=== PATIENT | male | born 1955 | race Caucasian/White ===

== ENCOUNTER 2019-08-09 16:45 | Emergency (ER) | payer OTHER ==
--- NOTE | 2019-08-09 18:21 | RAD REPORT ---
EXAM DESCRIPTION: USExtremkathryn Venous Uni Ltd08/09/2019 6:05 pm CLINICAL HISTORY: left leg pain and swelling. COMPARISON: None. FINDINGS: Left common femoral, superficial femoral, popliteal and posterior tibial veins are compre ssible and demonstrate augmentation. Doppler demonstrates good flow. IMPRESSION: No evidence of deep venous thrombosis involving the left lower extremity.
--- NOTE | 2019-08-09 18:56 | ER ---
Nurse's Notes [facility] Name: Dajuan Galicia Age: 63 yrs Sex: Male : 1955 Arrival Date: 08/09/2019 Time: 16:47 Bed 6 Private MD: Diagnosis: Pain in left leg Presentation: 08/09 17:01 Presenting complaint: Patient states: Dr. Patel sent to r/o DVT, reports Dr. Patel says jl7 his symptoms are classic for blood clot, reports "When I stand up my left leg gets real tight behind the knee, doesn't want to work and is a little swollen.". Transition of care: patient was not received from another setting of care. Onset of symptoms was August 05, 2019. Risk Assessment: Do you want to hurt yourself or someone else? Patient reports no desire to harm self or others. Initial Sepsis Screen: Does the patient meet any 2 criteria? No. Patient's initial sepsis screen is negative. Does the patient have a suspected source of infection? No. Patient's initial sepsis screen is negative. Care prior to arrival: None. 17:01 Method Of Arrival: Wheelchair [facility] [place] 17:01 Acuity: JASON 3 jl7 Triage Assessment: 17:05 General: Appears in no apparent distress. comfortable, Behavior is cooperative, bp appropriate for age, anxious. Pain: Complains of pain in left leg. EENT: No deficits noted. Neuro: No deficits noted. Cardiovascular: No deficits noted. Respiratory: No deficits noted. GI: No signs and/or symptoms were reported involving the gastrointestinal system. : No signs and/or symptoms were reported regarding the genitourinary system. Derm: No deficits noted. Musculoskeletal: Swelling present in left leg. Historical: - Allergies: 17:05 terbinafine HCl; jl7 - Home Meds: 17:05 irbesartan oral oral [Active]; amlodipine oral [Active]; [place] Thyroid Oral [Active]; jl7 - PMHx: 17:05 Hypertension; Hypothyroidism; jl7 - Immunization history:: Adult Immunizations not up to date. - Social history:: Smoking status: Patient uses tobacco products, denies chronic smoking, but will smoke occasionally. - Ebola Screening: : No symptoms or risks identified at this time. Screenin:05 Abuse screen: Denies threats or abuse. Denies injuries from another. Nutritional bp screening: No deficits noted. Tuberculosis screening: No symptoms or risk factors identified. Fall Risk None identified. Assessment: 17:05 General: SEE TRIAGE NOTE. bp 18:26 Reassessment: U/S COMPLETED, RESULTS PENDING. bp 19:04 Reassessment: Patient appears in no apparent distress at this time. Patient is alert, rr5 oriented x 3, equal unlabored respirations, skin warm/dry/pink. discharge instruction given and explained without complaints made, verbalized understading. Vital Signs: 17:05 BP 130 / 76; Pulse 75; Resp 16 S; Temp 98.3(O); Pulse Ox 95% on R/A; Weight 127.01 kg jl7 (R); Height 6 ft. 1 in. (185.42 cm) (R); Pain 5/10; 18:30 BP 140 / 86; Pulse 76; Resp 16; Pulse Ox 96% ; bp 19:04 Temp 98.3; rr5 17:05 Body Mass Index 36.94 (127.01 kg, 185.42 cm) jl7 19:04 patient refused for the rest of vital signs to be taken. rr5 ED Course: 16:47 Patient arrived in ED. as 17:04 Triage completed. jl7 17:05 Becky Dolan FNP-C is [facility]. kb 17:05 Joseph Krueger MD is Attending Physician. kb 17:05 Arm band placed on right wrist. jl7 17:05 Patient has correct armband on for positive identification. Bed in low position. Call bp light in reach. Side rails up X2. 17:08 Jasen Reyes, RN is Primary Nurse. bp 18:07 US Extremity Venous Unilateral Ltd In Process Unspecified. EDMS 19:05 No provider procedures requiring assistance completed. Patient did not have IV access rr5 during this emergency room visit. Administered Medications: No medications were administered Outcome: 18:56 Discharge ordered by . kb 19:05 Discharged to home ambulatory. rr5 19:05 Condition: stable 19:05 Discharge instructions given to patient, Instructed on discharge instructions, follow up and referral plans. medication usage, Demonstrated understanding of instructions, follow-up care, medications, Prescriptions given X 1. 19:18 Patient left the ED. rr5 Signatures: Dispatcher [employer] EDMA Becky Dolan FNP-C ARTIFICIAL BREEDING DISTRIBUTOR-CkRoxi Varela Jahala, RN RN jl7 Jasen Reyes, RN RN bp Shivam Clark, RN RN rr5
--- NOTE | 2019-08-09 18:57 | EDPHYS ---
Physician Documentation [facility] Name: Dajuan Galicia Age: 63 yrs Sex: Male : 1955 Arrival Date: 08/09/2019 Time: 16:47 Bed 6 Private MD: ED Physician Joseph Krueger HPI: 08/09 18:08 This 63 yrs old Male presents to ER via Wheelchair with complaints of Leg kb Pain. 18:08 The patient presents with pain, that is acute, tightness. The complaints affect the kb left calf and posterior aspect of left knee. Context: The problem was sustained at home, resulted from an unknown cause, the patient can fully bear weight, the patient is able to ambulate. Onset: The symptoms/episode began/occurred yesterday. Modifying factors: The symptoms are alleviated by nothing. the symptoms are aggravated by nothing. Associated signs and symptoms: The patient has no apparent associated signs or symptoms. Treatment prior to arrival includes: no previous treatment. Severity of symptoms: At their worst the symptoms were moderate, in the emergency department the symptoms are unchanged. The patient has not experienced similar symptoms in the past. The patient has not recently seen a physician. Pt reports he was sitting at his desk for a while and when he got up he had pain/tightness to calf and behind knee. Went to PCP today and was told to come get an US. Historical: - Allergies: 17:05 terbinafine HCl; jl7 - Home Meds: 17:05 irbesartan oral oral [Active]; amlodipine oral [Active]; [place] Thyroid Oral [Active]; jl7 - PMHx: 17:05 Hypertension; Hypothyroidism; jl7 - Immunization history:: Adult Immunizations not up to date. - Social history:: Smoking status: Patient uses tobacco products, denies chronic smoking, but will smoke occasionally. - Ebola Screening: : No symptoms or risks identified at this time. ROS: 18:07 Constitutional: Negative for fever, chills, and weight loss, Neck: Negative for injury, kb pain, and swelling, Cardiovascular: Negative for chest pain, palpitations, and edema, Respiratory: Negative for shortness of breath, cough, wheezing, and pleuritic chest pain, Abdomen/GI: Negative for abdominal pain, nausea, vomiting, diarrhea, and constipation, Back: Negative for injury and pain, Skin: Negative for injury, rash, and discoloration, Neuro: Negative for headache, weakness, numbness, tingling, and seizure. 18:07 MS/extremity: Positive for pain, of the posterior aspect of left knee and left calf, tightness. Exam: 18:07 Constitutional: This is a well developed, well nourished patient who is awake, alert, kb and in no acute distress. Head/Face: Normocephalic, atraumatic. ENT: Nares patent. No nasal discharge, no septal abnormalities noted. Tympanic membranes are normal and external auditory canals are clear. Oropharynx with no redness, swelling, or masses, exudates, or evidence of obstruction, uvula midline. Mucous membranes moist. Neck: Trachea midline, no thyromegaly or masses palpated, and no cervical lymphadenopathy. Supple, full range of motion without nuchal rigidity, or vertebral point tenderness. No Meningismus. Chest/axilla: Normal chest wall appearance and motion. Nontender with no deformity. No lesions are appreciated. Cardiovascular: Regular rate and rhythm with a normal S1 and S2. No gallops, murmurs, or rubs. Normal PMI, no JVD. No pulse deficits. Respiratory: Lungs have equal breath sounds bilaterally, clear to auscultation and percussion. No rales, rhonchi or wheezes noted. No increased work of breathing, no retractions or nasal flaring. Abdomen/GI: Soft, non-tender, with normal bowel sounds. No distension or tympany. No guarding or rebound. No evidence of tenderness throughout. Skin: Warm, dry with normal turgor. Normal color with no rashes, no lesions, and no evidence of cellulitis. MS/ Extremity: Pulses equal, no cyanosis. Neurovascular intact. Full, normal range of motion. Neuro: Awake and alert, GCS 15, oriented to person, place, time, and situation. Cranial nerves II-XII grossly intact. Motor strength 5/5 in all extremities. Sensory grossly intact. Cerebellar exam normal. Normal gait. Vital Signs: 17:05 BP 130 / 76; Pulse 75; Resp 16 S; Temp 98.3(O); Pulse Ox 95% on R/A; Weight 127.01 kg jl7 (R); Height 6 ft. 1 in. (185.42 cm) (R); Pain 5/10; 18:30 BP 140 / 86; Pulse 76; Resp 16; Pulse Ox 96% ; bp 19:04 Temp 98.3; rr5 17:05 Body Mass Index 36.94 (127.01 kg, 185.42 cm) jl7 19:04 patient refused for the rest of vital signs to be taken. rr5 MDM: 17:08 Patient medically screened. kb 18:05 Data reviewed: vital signs, nurses notes. Data interpreted: Pulse oximetry: on room air kb is 95 %. Interpretation: normal. 18:12 ED course: No tenderness, warmth or swelling noted upon exam. kb 18:55 Counseling: I had a detailed discussion with the patient and/or guardian regarding: the kb historical points, exam findings, and any diagnostic results supporting the discharge/admit diagnosis, radiology results, the need for outpatient follow up, a family practitioner, to return to the emergency department if symptoms worsen or persist or if there are any questions or concerns that arise at home. 08/09 17:06 Order name: US Extremity Venous Unilateral Ltd; Complete Time: 18:45 kb Administered Medications: No medications were administered Disposition: 08/09/19 18:56 Discharged to Home. Impression: Pain in left leg. - Condition is Stable. - Discharge Instructions: Musculoskeletal Pain. - Prescriptions for Cyclobenzaprine 10 mg Oral Tablet - take 1 tablet by ORAL route every 8 hours As needed; 21 tablet. - Medication Reconciliation Form, Thank You Letter, Antibiotic Education, Prescription Opioid Use form. - Follow up: Emergency Department; When: As needed; Reason: Worsening of condition. Follow up: Private Physician; When: 2 - 3 days; Reason: Recheck today's complaints, Continuance of care, Re-evaluation by your physician. Addendum: 08/13/2019 07:25 Co-signature as Attending Physician, Joseph Krueger MD. r n Signatures: Dispatcher [employer] EDMS Becky Dolan, COMMISSIONING SPECIALIST-C COMMISSIONING SPECIALIST-CkJoseph Agarwal MD MD rn Leal, Jahala, RN RN jl7 Shivam Clark RN RN rr5 Corrections: (The following items were deleted from the chart) 08/09 19:18 18:56 08/09/2019 18:56 Discharged to Home. Impression: Pain in left leg. Condition is rr5 Stable. Forms are Medication Reconciliation Form, Thank You Letter, Antibiotic Education, Prescription Opioid Use. Follow up: Emergency Department; When: As needed; Reason: Worsening of condition. Follow up: Private Physician; When: 2 - 3 days; Reason: Recheck today's complaints, Continuance of care, Re-evaluation by your physician. kb
[2019-08-09 21:49] VITALS: TEMP 98.3
[2019-08-09 21:50] VITALS: BP 140/86; O2SAT 96
== END 2019-08-09 19:18 | disposition home or self-care (01) ==
LOC: ER 16:45
DX: M79.662 Pain in left lower leg (principal); I10 Essential (primary) hypertension; E03.9 Hypothyroidism, unspecified; Z72.0 Tobacco use; Z88.8 Allergy status to other drugs, medicaments and biological substances
CPT/HCPCS: 93971; 99283

== ENCOUNTER 2023-12-01 15:24 | Inpatient (IN) | payer OTHER ==
[2023-12-01] MEDS ORDERED: VANCOMYCIN 1 GM/VIAL ONE (16:27)
[2023-12-01] MEDS ORDERED: NA CHLORIDE 0.9% 1,000 ML ONE (16:28)
[2023-12-01] MEDS ORDERED: NA CHLORIDE 0.9% 250 ML ONE (16:28)
[2023-12-01 16:33] LABS: PT Prothrombin Time 12.7 SECONDS (9.5-12.5); PTT, Activated Partial Thromb 30.6 SECONDS (24.3-36.9); Protime INR 1.16
[2023-12-01 16:34] LABS: Absolute Eosinophils 0.1 K/uL (0-0.5); Absolute Lymphocytes (CBC) 0.9 K/uL (0.7-4.9); Absolute Monocytes 1.6 K/uL (0.1-1.3); Basophils % 0.4 % (0-1.3); Eosinophils % 1.2 % (0-4.4); Hematocrit 40.1 % (39.6-49.0); Hemoglobin 13.7 g/dL (13.6-17.9); Lymphocytes % 7.8 % (15.3-44.8); MCHC 34.1 g/dL (32.0-36.0); MCV 93.7 fL (80-100); MPV 8.4 fL (7.6-11.3); Monocytes % 13.8 % (3.3-12.3); Neutrophils % 76.8 % (41.7-73.7); Platelets 212 thou/uL (152-406); RBC Red Blood Cell Count 4.28 M/uL (4.33-5.43); Red Cell Distribution Width 13.9 % (12.1-15.2)
[2023-12-01 16:48] LABS: Albumin 3.5 g/dL (3.4-5.0); Albumin/Globulin Ratio 0.8 (1.1-1.8); Anion Gap 9.9 mEq/L (5.0-15.0); Bilirubin Total 0.6 mg/dL (0.2-1.0); Globulin 4.2 g/dL (2.3-3.5); Potassium 3.9 mEq/L (3.5-5.1); Protein, Total 7.7 g/dL (6.4-8.2)
--- NOTE | 2023-12-01 17:29 | RAD REPORT ---
EXAM DESCRIPTION: [place] Single View12/01/2023 4:37 pm CLINICAL HISTORY: wound to back COMPARISON: Chest Pa And Lat (2 Views) dated 07/31/2019; Chest Pa And Lat (2 Views) dated 02/06/2018 TECHNIQUE: Portable AP view of the chest. FINDINGS: The lungs are clear. No pneumothorax or effusion. The cardiomediastinal contours are unre markable. IMPRESSION: No acute cardiopulmonary process.
--- NOTE | 2023-12-01 18:06 | EDPHYS ---
Physician Documentation [facility] Name: Dajuan Galicia Age: 68 yrs Sex: Male : 1955 Arrival Date: 12/01/2023 Time: 15:24 Bed 3 Private MD: Ramon Lugo ED Physician Alfonso Madrigal HPI: 11/30 17:40 This 68 yrs old Male presents to ER via Ambulatory with complaints of Sent by Shabbir. rt 17:40 Patient presents to the ED with a wound to his lower back for several days. He was at rt his office today for drainage, was found to be tachycardic, somewhat hypertensive, diaphoretic, sent to the ED for admission, further care. Dr. Shea recommended n.p.o. after midnight, IV antibiotics.. Historical: - Allergies: 15:38 terbinafine HCl; ko1 - PMHx: 15:38 Hypertension; Hypothyroidism; ko1 - PSHx: 15:38 None; ko1 - Immunization history:: Adult Immunizations up to date. - Social history:: Smoking status: Patient denies any tobacco usage or history of. - Family history:: not pertinent. ROS: 17:40 Constitutional: Negative for fever, chills, and weight loss, Cardiovascular: Negative rt for chest pain, palpitations, and edema, Respiratory: Negative for shortness of breath, cough, wheezing, and pleuritic chest pain, Abdomen/GI: Negative for abdominal pain, nausea, vomiting, diarrhea, and constipation, MS/Extremity: Negative for injury and deformity, Neuro: Negative for headache, weakness, numbness, tingling, and seizure, Psych: Negative for depression, anxiety, suicide ideation, homicidal ideation, and hallucinations, 17:40 Skin: Positive for cellulitis, erythema, Exam: 17:40 Constitutional: This is a well developed, well nourished patient who is awake, alert, rt and in no acute distress. Head/Face: Normocephalic, atraumatic. Chest/axilla: Normal chest wall appearance and motion. Nontender with no deformity. No lesions are appreciated. Cardiovascular: Regular rate and rhythm with a normal S1 and S2. No gallops, murmurs, or rubs. Normal PMI, no JVD. No pulse deficits. Respiratory: Lungs have equal breath sounds bilaterally, clear to auscultation and percussion. No rales, rhonchi or wheezes noted. No increased work of breathing, no retractions or nasal flaring. Abdomen/GI: Soft, non-tender, with normal bowel sounds. No distension or tympany. No guarding or rebound. No evidence of tenderness throughout. MS/ Extremity: Pulses equal, no cyanosis. Neurovascular intact. Full, normal range of motion. Neuro: Awake and alert, GCS 15, oriented to person, place, time, and situation. Cranial nerves II-XII grossly intact. Motor strength 5/5 in all extremities. Sensory grossly intact. Cerebellar exam normal. Normal gait. 17:40 Skin: 2 cm area of erythema, induration to the lower back, no obvious purulence. 17:43 ECG was reviewed by the Attending Physician. rt Vital Signs: 15:34 BP 92 / 64; Pulse 85; Resp 16; Temp 97.8; Pulse Ox 98% ; ko1 16:30 BP 102 / 66; Pulse 70; Resp 18; Pulse Ox 100% ; cp4 17:30 BP 122 / 77; Pulse 73; Resp 18; Pulse Ox 100% ; cp4 18:30 BP 126 / 64; Pulse 84; Resp 18; Pulse Ox 98% ; cp4 MDM: 15:46 Patient medically screened. rt 18:07 Differential Diagnosis Cellulitis, abscess, sepsis. Data reviewed: vital signs, nurses rt notes, lab test result(s), radiologic studies. Consideration of Admission/Observation Patient was admitted/placed on observation. Management of patient was discussed with the following: Transitional Kindergarten Teacher: Discussed with Dr. Shea, once patient n.p.o. after midnight, will operate in the morning.. Independent interpretation of the following test(s) in the Emergency Department CT Scan: My interpretation is No bowel obstruction seen on my interpretation of CT scan images. Care significantly affected by the following chronic conditions: Hypertension. Counseling: I had a detailed discussion with the patient and/or guardian regarding the historical points, exam findings, and any diagnostic results supporting the discharge/admit diagnosis, lab results, radiology results, the need for further work-up and treatment in the hospital. 11/30 15:54 Order name: Blood Culture Adult (2) rt 11/30 15:54 Order name: CBC with Diff; Complete Time: 17:04 rt 11/30 15:54 Order name: CMP; Complete Time: 17:04 rt 11/30 15:54 Order name: Lactate w/ 2H reflex if indic.; Complete Time: 17:04 rt 11/30 15:54 Order name: Protime (+inr); Complete Time: 17:04 rt 11/30 15:54 Order name: Ptt, Activated; Complete Time: 17:04 rt 11/30 15:54 Order name: Urinalysis w/ reflexes rt 11/30 18:34 Order name: Basic Metabolic Panel EDMS 11/30 18:34 Order name: Basic Metabolic Panel EDMS 11/30 18:34 Order name: CBC with Automated Diff EDMS 11/30 18:34 Order name: CBC with Automated Diff EDMS 11/30 15:54 Order name: Chest Single View XRAY; Complete Time: 18:08 rt 11/30 17:25 Order name: Abdomen ; Complete Time: 18:35 EDMS 11/30 15:54 Order name: EKG; Complete Time: 15:55 rt 11/30 18:34 Order name: CONS Physician Consult EDMS 11/30 15:54 Order name: Accucheck; Complete Time: 16:22 rt 11/30 15:54 Order name: Cardiac monitoring; Complete Time: 16:21 rt 11/30 15:54 Order name: EKG - Nurse/Tech; Complete Time: 16:48 rt 11/30 15:54 Order name: IV Saline Lock - Large Bore; Complete Time: 16:21 rt 11/30 15:54 Order name: Labs collected and sent; Complete Time: 16:21 rt 11/30 15:54 Order name: O2 Per Protocol; Complete Time: 16:21 rt 11/30 15:54 Order name: O2 Sat Monitoring; Complete Time: 16:21 rt 11/30 15:54 Order name: Vital Signs; Complete Time: 16:21 rt EC:43 Rate is 72 beats/min. Rhythm is regular, Normal Sinus Rhythm with No ectopy. Left axis rt deviation noted. IA interval is normal. QRS interval is normal. QT interval is normal. No Q waves. Administered Medications: 16:37 Drug: vancoMYCIN IVPB 1 grams IVPB once over 2 hrs Route: IVPB; Infused Over: 2 hrs; cp4 Site: left antecubital; 18:38 Follow up: Response: No adverse reaction; IV Status: Completed infusion cp4 16:37 Drug: NS 0.9% IV 1000 ml IV at 1 bolus Per protocol; 1000 mL bolus Route: IV; Rate: 1 cp4 bolus; Site: left antecubital; 18:09 Follow up: Response: No adverse reaction; IV Status: Completed infusion cp4 Disposition Summary: 12/01/23 18:05 Hospitalization Ordered Notes: Hospitalization Status: Inpatient Admission rt Provider: Javy Clark rt Location: Telemetry/[facility] (Inpatient) rt Condition: Stable rt Problem: new rt Symptoms: have improved rt Bed/Room Type: Standard rt Room Assignment: 404(12/01/23 18:46) em1 Diagnosis - Cellulitis to lower back rt Forms: - Medication Reconciliation Form rt - SBAR form rt - Leadership Thank You Letter rt Signatures: Dispatcher [employer] Raul Walter em1 Natalia Dumas, RN RN ko1 Alfonso Madrigal MD MD rt Linda Flores cp4 Corrections: (The following items were deleted from the chart) 17:25 17:20 Abdomen Pelvis W Con+CT.RAD.BRZ ordered. EDND EDMS 18:46 18:05 rt em1
--- NOTE | 2023-12-01 18:06 | ER ---
Nurse's Notes [facility] Name: Dajuan Galicia Age: 68 yrs Sex: Male : 1955 Arrival Date: 12/01/2023 Time: 15:24 Bed 3 Private MD: Ramon Lugo Diagnosis: Cellulitis to lower back Presentation: 11/30 15:34 Chief complaint: Patient states: Dr Shea sent him over for surgery for "something on ko1 my lower back", its been there about 2 weeks. Coronavirus screen: At this time, the client does not indicate any symptoms associated with coronavirus-19. Ebola Screen: No symptoms or risks identified at this time. Initial Sepsis Screen: Does the patient meet any 2 criteria? No. Patient's initial sepsis screen is negative. Does the patient have a suspected source of infection? No. Patient's initial sepsis screen is negative. Risk Assessment: Do you want to hurt yourself or someone else? Patient reports no desire to harm self or others. Onset of symptoms is unknown. 15:34 Method Of Arrival: Ambulatory ko1 15:34 Acuity: JASON 3 ko1 Triage Assessment: 15:38 General: Appears in no apparent distress. Behavior is calm, cooperative, appropriate ko1 for age. Pain: Complains of pain in back. Historical: - Allergies: 15:38 terbinafine HCl; ko1 - PMHx: 15:38 Hypertension; Hypothyroidism; ko1 - PSHx: 15:38 None; ko1 - Immunization history:: Adult Immunizations up to date. - Social history:: Smoking status: Patient denies any tobacco usage or history of. - Family history:: not pertinent. Screenin:22 [facility] ED Fall Risk Assessment (Adult) History of falling in the last 3 months, cp4 including since admission No falls in past 3 months (0 pts) Confusion or Disorientation No (0 pts) Intoxicated or Sedated No (0 pts) Impaired Gait No (0 pts) Mobility Assist Device Used No (0 pt) Altered Elimination No (0 pt) Score/Fall Risk Level 0 - 2 = Low Risk Oriented to surroundings, Maintained a safe environment, Assessed \\T\\ reinforced patient's understanding of fall precautions, Hourly rounding (assess needs \\T\\ fall precautionary measures) done. Abuse screen: Denies threats or abuse. Nutritional screening: No deficits noted. Tuberculosis screening: No symptoms or risk factors identified. Assessment: 16:22 General: Appears uncomfortable, Behavior is calm, cooperative, appropriate for age. cp4 Pain: Complains of pain in low back area Pain currently is 10 out of 10 on a pain scale. Derm: Abscess located on low back area has no drainage, is red, is raised. Vital Signs: 15:34 BP 92 / 64; Pulse 85; Resp 16; Temp 97.8; Pulse Ox 98% ; ko1 16:30 BP 102 / 66; Pulse 70; Resp 18; Pulse Ox 100% ; cp4 17:30 BP 122 / 77; Pulse 73; Resp 18; Pulse Ox 100% ; cp4 18:30 BP 126 / 64; Pulse 84; Resp 18; Pulse Ox 98% ; cp4 ED Course: 15:25 Patient arrived in ED. rg4 15:25 Alfonso Madrigal MD is Attending Physician. rt 15:26 Ramon Lugo DO is Private Physician. rg4 15:38 Triage completed. ko1 15:38 Arm band placed on right wrist. Patient placed in an exam room, on a stretcher, on ko1 decorating consultant, on pulse oximetry, Patient notified of wait time. 15:55 Linda Flores is Primary Nurse. cp4 16:15 Initial lab(s) drawn, by me, sent to lab. First set of blood cultures drawn by me, cp4 Second set of blood cultures drawn by me, EKG done, by ED staff, reviewed by Alfonso Madrigal MD. 16:21 Blood Culture Adult (2) Sent. cp4 16:21 CBC with Diff Sent. cp4 16:21 CMP Sent. cp4 16:21 Lactate w/ 2H reflex if indic. Sent. cp4 16:21 Protime (+inr) Sent. cp4 16:21 Ptt, Activated Sent. cp4 16:21 Urinalysis w/ reflexes Sent. cp4 16:22 Placed in gown. Bed in low position. Call light in reach. Side rails up X 1. Provided cp4 Education on: abscess. 16:22 No provider procedures requiring assistance completed. cp4 16:22 Inserted saline lock: 20 gauge in left antecubital area, using aseptic technique. Blood cp4 collected. 16:38 Chest Single View XRAY In Process Unspecified. EDMS 17:41 Abdomen In Process Unspecified. EDMS 18:05 Javy Clark MD is Hospitalizing Provider. rt 19:41 Patient admitted, IV remains in place. rv Administered Medications: 16:37 Drug: vancoMYCIN IVPB 1 grams IVPB once over 2 hrs Route: IVPB; Infused Over: 2 hrs; cp4 Site: left antecubital; 18:38 Follow up: Response: No adverse reaction; IV Status: Completed infusion cp4 16:37 Drug: NS 0.9% IV 1000 ml IV at 1 bolus Per protocol; 1000 mL bolus Route: IV; Rate: 1 cp4 bolus; Site: left antecubital; 18:09 Follow up: Response: No adverse reaction; IV Status: Completed infusion cp4 Medication: 16:22 VIS not applicable for this client. cp4 Outcome: 18:05 Decision to Hospitalize by Provider. rt 19:40 Admitted to Tele accompanied by nurse, via wheelchair, room 404, Report called to rv admission papers faxed and received by Shonna BILLINGS 19:40 Condition: good 19:40 Instructed on the need for admit, 19:41 Patient left the ED. rv Signatures: Dispatcher [employer] Lashanda Huffman rg4 Rafi Holcomb RN RN rv Natalia Dumas RN RN ko1 Alfonso Madrigal MD MD rt Linda Flores cp4 Corrections: (The following items were deleted from the chart) 15:39 15:34 Chief complaint: Patient states: Dr Shea sent him over for surgery for ko1 "something on my lower back" ko1
--- NOTE | 2023-12-01 18:24 | P.HP ---
Certification for Inpatient Patient admitted to: Inpatient With expected LOS: >2 Midnights Patient will require the following post-hospital care: None Practitioner: I am a practitioner with admitting privileges, knowledge of patient current condition, hospital course, and medical plan of care. Services: Services provided to patient in accordance with Admission requirements found in Title 42 Section 412.3 of the Code of Federal Regulations Patient History Date of Service: 12/01/23 Reason for admission: Cellulitis of the lower back History of Present Illness: Patient is a 68-year-old gentleman came to the hospital with pain on the lower back. Patient stated that he had been cutting his yard a week ago and he had been sweating quite a bit. When he came inside he noticed that he was not feeling like himself. He was feeling nauseated and dizzy. He also noticed that he has some erythema on the lower back. He was feeling really bad all weekend as he was not really getting out of bed and doing much of anything. Whenever he would get up he would feel dizzy so he was hesitant to do anything strenuous. The area on his back started getting hard, and he made an appointment on Tuesday for a tele-doc visit with Sarah Lara. The tele-doc called in an antibiotic for him. He also called in an ointment for his lower back. Patient states that he was not really feeling any better. He decided to go into the doctor yesterday and they set up an appointment for him to go see a surgeon. He ended up going to see Dr. Shea. He was sent into the emergency room for further evaluation. In the ER, patient has had lab workup and CT scan which are pending. Patient is feeling dehydrated as he has some dysuria. Patient will be admitted to the hospital for inpatient hospitalization. Allergies terbinafine HCl [From Lamisil] Allergy (Verified 01/30/16 09:20) Rash Home Medications: Amlodipine [Norvasc*] 10 mg PO DAILY 06/14/14 Irbesartan/Hydrochlorothiazide [Avalide 300-12.5 mg Tablet] 1 each PO DAILY WITH BREAKFAST 06/14/14 Thyroid Tab [[place] Thyroid] 30 mg PO DAILY 06/14/14 - Past Medical/Surgical History -: Hypertension -: Hypothyroidism Past Surgical History: Patient denies surgical history - Family History Father Family History: Reviewed- Non-Contributory - Social History Smoking Status: Former smoker Alcohol use: Yes CD- Drugs: Yes Review of Systems 10-point ROS is otherwise unremarkable Physical Examination - Vital Signs Temperature: 99 F Blood Pressure: 140/80 Pulse: 90 Respirations: 18 Pulse Ox (%): 96 - Physical Exam General: Alert, In no apparent distress, Oriented x3 HEENT: Atraumatic, PERRLA, Mucous membr. moist/pink, EOMI, Sclerae nonicteric Neck: Supple, 2+ carotid pulse no bruit, No LAD, Without JVD or thyroid abnormality Respiratory: Clear to auscultation bilaterally, Normal air movement Cardiovascular: Regular rate/rhythm, Normal S1 S2 Gastrointestinal: Normal bowel sounds, Soft and benign, Non-distended, No tenderness Musculoskeletal: No clubbing, No swelling, No tenderness Integumentary: Tenderness/swelling, Erythema, Warmth Neurological: Normal gait, Normal speech, Normal strength at 5/5 x4 extr, Normal tone, Sensation intact, Cranial nerves 3-12 intact, Normal affect Lymphatics: No axilla or inguinal lymphadenopathy - Studies Laboratory Data (last 24 hrs) 12/01/23 12/01/23 12/01/23 16:15 16:15 16:15 WBC 11.70 H Hgb 13.7 Hct 40.1 Plt Count 212 PT 12.7 H INR 1.16 APTT 30.6 Sodium 137 Potassium 3.9 BUN 21 H Creatinine 1.96 H Glucose 103 Total Bilirubin 0.6 AST 19 ALT 32 Alkaline Phosphatase 86 Assessment & Plan - Problems (Diagnosis) (1) Cellulitis of lower back Current Visit: Yes Status: Acute (2) Hypertension Current Visit: Yes Status: Acute (3) Hypothyroid Current Visit: Yes Status: Acute (4) Acute kidney injury Current Visit: Yes Status: Acute - Plan Plan: 1. Patient with cellulitis of the lower back; continue with IV antibiotic therapy and pain control. General surgery has been consulted. CT scan pending. Patient may have a slight abscess which may need to be I&D. Will await further diagnostic studies to be reported. 2. Patient with acute kidney injury; continue with aggressive IV hydration and monitor renal function. UA pending 3. History of hypertension; continue with antihypertensives 4. Hypothyroidism; continue with [place] Thyroid 5. GI and DVT prophylaxis Discharge Plan: Home Plan to discharge in: Greater than 2 days - Advance Directives Does patient have a Living Will: No Does patient have a Durable POA for Healthcare: No - Code Status/Comfort Care Code Status Assessed: Yes Code Status: Full Code Critical Care: No Time Spent Managing PTS Care (In Minutes): 45
--- NOTE | 2023-12-01 18:25 | RAD REPORT ---
EXAM DESCRIPTION: CT - Abdomen Pelvis Wo Contrast - 12/01/2023 5:39 pm CLINICAL HISTORY: back wound COMPARISON: Abdomen Pelvis W Contrast dated 02/04/2021; Abdomen Pelvis W Contrast dated 02/15/2018; CT ABD PELVIS W WO CONTRAST dated 07/31/2012 TECHNIQUE: Thin cut axial CT imaging of the abdomen and pelvis was performed without IV contrast. Mu ltiplanar reformats were generated and reviewed. All CT scans are performed using dose optimization technique as appropriate and may include automated exposure control or mA/KV adjustment according to patient size. FINDINGS: No suspicious findings in the lung bases. The liver, spleen, adrenal glands, and pancreas show no suspicious findings. Gallbladder and biliary tree are also without suspicious finding. Symmetric renal contour, without suspicious parenchymal findings within limits of noncontrast techniq ue. No evidence of radiopaque calculi or hydroureteronephrosis. No dilated bowel loops or bowel wall thickening. No free air, free fluid or inflammatory stranding. N o hernia, mass or bulky lymphadenopathy. Mild colonic diverticulosis. The urinary bladder is without significant finding. No suspicious bony findings. Underlying the radiographic marker, lobulated subcutaneous soft tissue densities are seen in the lowe r back near the midline opposite L4 with possible small tract extending to the skin. This measures 2. 7 x 1.3 cm in greatest axial dimensions. Mild adjacent fat stranding and overlying skin thickening. N o deeper components involving the the fascia or paraspinous muscles. IMPRESSION: Lobulated lower back paramidline soft tissue densities, underlying the radiographic blanquita er, with mild adjacent inflammatory changes. Findings may relate to cellulitis with early phlegmon fo rmation, or a complicated sebaceous cyst. No acute intra-abdominal process. Colonic diverticulosis.
[2023-12-01] MEDS ORDERED: ACETAMINOPHEN 500 MG TAB PO PRN (18:28)
[2023-12-01] MEDS ORDERED: ONDANSETRON 4 MG/2 ML VIAL IV PRN (18:28)
[2023-12-01 20:00] VITALS: BMI 36.9
[2023-12-01] MEDS: NA CHLORIDE 0.9% 1,000 ML IV SCH (20:12)
[2023-12-01] MEDS: AMPICILLIN/SULBACT 3 GM in NA CHLORIDE 0.9% 100 ML IVPB SCH (20:12)
[2023-12-01] MEDS: VANCOMYCIN 1 GM in NA CHLORIDE 0.9% 250 ML IVPB ONE (20:12)
[2023-12-01] MEDS: MORPHINE 2 MG/ML SYR IV PRN (20:13)
[2023-12-02] MEDS: MELATONIN 5 MG TABLET PO PRN (00:15)
[2023-12-02 05:36] LABS: Absolute Basophils 0.1 K/uL (0-0.5); Absolute Eosinophils 0.3 K/uL (0-0.5); Absolute Lymphocytes (CBC) 1.1 K/uL (0.7-4.9); Absolute Monocytes 1.6 K/uL (0.1-1.3); Absolute Neutrophil 8.4 K/uL (1.8-8.0); Basophils % 0.5 % (0-1.3); Hematocrit 37.6 % (39.6-49.0); Hemoglobin 12.6 g/dL (13.6-17.9); Lymphocytes % 9.4 % (15.3-44.8); MCH 31.4 pg (27.0-35.0); MCHC 33.4 g/dL (32.0-36.0); MCV 94.1 fL (80-100); MPV 8.4 fL (7.6-11.3); Monocytes % 13.8 % (3.3-12.3); Neutrophils % 73.3 % (41.7-73.7); Nucleated Red Blood Cells % 0.2 % (0-0); Platelets 190 thou/uL (152-406); RBC Red Blood Cell Count 3.99 M/uL (4.33-5.43); Red Cell Distribution Width 13.6 % (12.1-15.2)
[2023-12-02] MEDS: Ringers Lactate 1,000 ML IV ONE (08:22)
[2023-12-02] MEDS ORDERED: propofoL 200 MG/20 ML VIAL IV ONE ×2 (08:52→09:43)
[2023-12-02] MEDS ORDERED: FENTANYL CITR 100 MCG/2 ML ONE ×2 (08:53→10:10)
[2023-12-02] MEDS ORDERED: ONDANSETRON 4 MG/2 ML VIAL ONE (08:53)
[2023-12-02] MEDS ORDERED: LIDOCAINE 2% MPF 5 ML VIAL ONE (08:53)
[2023-12-02] MEDS ORDERED: MIDAZOLAM HCL 2 MG/2 ML INJ ONE (08:53)
[2023-12-02] MEDS ORDERED: EPHEDRINE SULF 50 MG/ML VIAL ONE (09:56)
[2023-12-02] MEDS: BUPIVACAINE 0.25% PF 10 ML VIAL ONE (10:09)
[2023-12-02] MEDS ORDERED: BUPIVACAINE 0.25% PF 10 ML VIAL ONE (10:09)
[2023-12-02] MEDS ORDERED: GLYCOPYRROLATE 0.2 MG/ML SYR ONE ×2 (10:10)
--- NOTE | 2023-12-02 10:27 | P.OP ---
Preoperative diagnosis: Sacral infected cyst with abscess Postoperative diagnosis: Sacral infected cyst with abscess Primary procedure: Excisional Debridement of Sacral infected cyst with abscess Anesthesia: GETA + Local Estimated blood loss: <20cc Specimen: Cultures, Debridement Tissue Findings: infected sebaceous cyst with abscess ~9cm x 6 cm x 4cm Complications: None Transferred to: Recovery Room Condition: Good
--- NOTE | 2023-12-02 10:50 | P.PN ---
Subjective Date of Service: 12/02/23 Chief Complaint: Cellulitis of the lower back Physical Examination - Vital Signs Temperature: 97.9 F Blood Pressure: 98/64 Pulse: 88 Respirations: 20 Pulse Ox (%): 94 - Physical Exam General: Alert, In no apparent distress, Oriented x3 HEENT: Atraumatic, Normocephalic Neck: Supple, 2+ carotid pulse no bruit Respiratory: Clear to auscultation bilaterally, Normal air movement Cardiovascular: No edema, Normal pulses Capillary refill: <2 Seconds Gastrointestinal: Soft and benign Musculoskeletal: No clubbing, No swelling Integumentary: Other (sacral abscess with surrounding cellulitis, leaking purulent dc from central area at midline sacrum) Neurological: Normal speech, Normal tone Lymphatics: No axilla or inguinal lymphadenopathy External genitalia: Deferred Rectal: Deferred - Studies Laboratory Data (last 24 hrs) 12/01/23 12/01/23 12/01/23 16:15 16:15 16:15 WBC 11.70 H Hgb 13.7 Hct 40.1 Plt Count 212 PT 12.7 H INR 1.16 APTT 30.6 Sodium 137 Potassium 3.9 BUN 21 H Creatinine 1.96 H Glucose 103 Total Bilirubin 0.6 AST 19 ALT 32 Alkaline Phosphatase 86 Assessment And Plan - Plan Assessment & Plan - Problems (Diagnosis) (1) Cellulitis of lower back Current Visit: Yes Status: Acute (2) Hypertension Current Visit: Yes Status: Acute (3) Hypothyroid Current Visit: Yes Status: Acute (4) Acute kidney injury Current Visit: Yes Status: Acute - Plan Plan: Patient with cellulitis of the lower back; continue with IV antibiotic therapy and pain control. General surgery taking to OR later this am. Patient with acute kidney injury; continue with aggressive IV hydration and monitor renal function. History of hypertension; continue with antihypertensives Hypothyroidism; continue with [place] Thyroid From Dr. Shea's note from OR "Cultures, Debridement Tissue Findings: infected sebaceous cyst with abscess ~9cm x 6 cm x 4cm" GI and DVT prophylaxis Discharge Plan: Home Plan to discharge in: Greater than 2 days - Advance Directives Does patient have a Living Will: No Does patient have a Durable POA for Healthcare: No
[2023-12-02] MEDS: HYDROMORPHONE HCL 1 MG/ML INJ ONE (10:53)
[2023-12-02 11:20] VITALS: O2SAT 100
--- NOTE | 2023-12-02 11:52 | EKG ---
Test Date: 2023-12-01 Test Time: 16:33:50 Electric Spot Welder: MANISH MEASUREMENT RESULTS: Intervals: Rate: 72 VT: 194 QRSD: 96 QT: 404 QTc: 442 [place]: P: 58 VT: 194 QRS: -39 T: 19 INTERPRETIVE STATEMENTS: Normal sinus rhythm Left axis deviation Moderate voltage criteria for LVH, may be normal variant Abnormal ECG Compared to ECG 01/30/2016 10:06:03 No significant changes Electronically Signed On 12-02-23 11:49:14 CDT by Umang Peters
--- NOTE | 2023-12-02 11:54 | OP ---
Date of Procedure: 12/02/2023 Surgeon: Dionicio Shea MD, Preoperative Diagnosis: Sacral infected cyst with abscess. Postoperative Diagnosis: Sacral infected cyst with abscess. Procedure Performed: Excisional debridement of sacral infected cyst with abscess. Anesthesia: General endotracheal plus local with 0.25% Marcaine without epinephrine. Estimated Blood Loss: Less than 20 cc. Specimen: Culture sent for both aerobic and anaerobic speciation and debridement of tissue. Findings: Approximately 9 cm x 6 cm x 4 cm infected sebaceous cyst with abscess. Significant inflam matory changes present in this area with induration. Complications: None. Disposition: The patient was transferred to recovery room in good condition. Procedure In Detail: After informed consent was obtained, patient was brought to the operating room, prepped and draped in the usual sterile fashion. After adequate anesthesia was achieved, I made an elliptical incision down to subcutaneous tissues. Immediately encountered was abscess type material and sebaceous material. This was consistent with a ruptured sebaceous cyst. I cultured this for bot h aerobic and anaerobic speciation, circumferentially dissected out all nonviable tissue as well as d raining all abscess cavity for approximately 9 cm x 6 cm x 4 cm down to the fascia overlying the sacr um, but not involving it. After this was completely removed, the area was copiously irrigated and he mostasis was achieved with electrocautery. The wound was then packed with Vashe soaked Kerlix. A st erile dressing was placed over top. The patient tolerated the procedure without incident or complica tion and transferred to PACU in good condition. All counts were correct at the end of the case. MARIANO/BLAIR Voice ID: [id number] Report ID: [id number]
[2023-12-03] MEDS: VANCOMYCIN 2 GM in NA CHLORIDE 0.9% 500 ML IV SCH (05:56)
--- NOTE | 2023-12-03 09:57 | P.PN ---
Subjective Date of Service: 12/03/23 Chief Complaint: Cellulitis of the lower back Subjective: No C/O voiced (would like to know how big the wound is before he can see if he will need HH for dressing changes), Tolerating diet, Improving <Shannan Marie Wilber - Last Filed: 12/03/23 09:53> Date of Service: 12/03/23 <Hallie Root C - Last Filed: 12/03/23 23:01> Review of Systems 10-point ROS is otherwise unremarkable General: As per HPI Eyes: Unremarkable ENT: Unremarkable Respiratory: Unremarkable Cardiovascular: Unremarkable Gastrointestinal: Unremarkable Genitourinary: Unremarkable Musculoskeletal: Unremarkable Integumentary: As per HPI <Shannan Marie Wilber - Last Filed: 12/03/23 09:53> Physical Examination - Vital Signs Temperature: 98.2 F Blood Pressure: 114/59 Pulse: 68 Respirations: 16 Pulse Ox (%): 97 - Physical Exam General: Alert, In no apparent distress, Oriented x3 HEENT: Atraumatic, Normocephalic Neck: JVD not distended Respiratory: Clear to auscultation bilaterally, Normal air movement Cardiovascular: Normal pulses, Regular rate/rhythm Capillary refill: <2 Seconds Gastrointestinal: Soft and benign Musculoskeletal: No clubbing Integumentary: Other (surgical dressing to sacral area, clean and dry) Neurological: Normal speech, Normal tone External genitalia: Deferred Rectal: Deferred <Shannan Marielen - Last Filed: 12/03/23 09:53> Assessment And Plan - Plan Assessment & Plan - Problems (Diagnosis) (1) Cellulitis of lower back Current Visit: Yes Status: Acute (2) Hypertension Current Visit: Yes Status: Acute (3) Hypothyroid Current Visit: Yes Status: Acute (4) Acute kidney injury Current Visit: Yes Status: Acute - Plan Plan: Patient with cellulitis of the lower back; continue with IV antibiotic therapy and pain control Patient with acute kidney injury; continue with aggressive IV hydration and monitor renal function - renal function back to normal 12/02 History of hypertension; continue with antihypertensives Hypothyroidism; continue with [place] Thyroid Wound care plan - per Dr. Shea From Dr. Shea's note from OR "Cultures, Debridement Tissue Findings: infected sebaceous cyst with abscess ~9cm x 6 cm x 4cm" GI and DVT prophylaxis Discharge Plan: Home Plan to discharge in: Greater than 2 days - Advance Directives Does patient have a Living Will: No Does patient have a Durable POA for Healthcare: No <Shannan Marie - Last Filed: 12/03/23 09:53> - Plan Pt seen and examined. I agree with the note by the DYE JIG OPERATOR. Pt is getting iv abx. s/p I&D. Gen surgeon cleared pt for discharge. <Hallie Root - Last Filed: 12/03/23 23:01>
--- NOTE | 2023-12-03 12:30 | P.DS ---
Admission Date: 12/01/23 Discharge Date: 12/03/23 Disposition: ROUTINE DISCHARGE Discharge Condition: GOOD Reason for Admission: Cellulitis of the lower back Consultations: Dr. Shea Procedures: Surgical I&D of abscess Vital Signs/Physical Exam: Temp Pulse Resp BP Pulse Ox 98.2 F 68 16 114/59 L 97 12/03/23 09:56 12/03/23 09:56 12/03/23 09:56 12/03/23 09:56 12/03/23 09:56 General: Alert, In no apparent distress, Oriented x3 HEENT: Atraumatic, Normocephalic Neck: Supple Respiratory: Clear to auscultation bilaterally, Normal air movement Cardiovascular: No edema, Normal pulses, Regular rate/rhythm Capillary refill: <2 Seconds Gastrointestinal: Soft and benign Musculoskeletal: No clubbing, No swelling Integumentary: Other (dressing to surgical site, clean, dry and intact) Neurological: Normal speech, Normal tone Lymphatics: No axilla or inguinal lymphadenopathy External genitalia: Deferred Rectal: Deferred Laboratory Data at Discharge: WBC 11.40 thou/uL (4.3-10.9) H 12/02/23 04:40 Hgb 12.6 g/dL (13.6-17.9) L D 12/02/23 04:40 Hct 37.6 % (39.6-49.0) L 12/02/23 04:40 Plt Count 190 thou/uL (152-406) 12/02/23 04:40 PT 12.7 SECONDS (9.5-12.5) H 12/01/23 16:15 INR 1.16 12/01/23 16:15 APTT 30.6 SECONDS (24.3-36.9) 12/01/23 16:15 Sodium 139 mEq/L (136-145) 12/02/23 04:40 Potassium 4.0 mEq/L (3.5-5.1) 12/02/23 04:40 BUN 18 mg/dL (7-18) 12/02/23 04:40 Creatinine 1.18 mg/dL (0.70-1.30) 12/02/23 04:40 Glucose 101 mg/dL (74-106) 12/02/23 04:40 Total Bilirubin 0.6 mg/dL (0.2-1.0) 12/01/23 16:15 AST 19 U/L (15-37) 12/01/23 16:15 ALT 32 U/L (16-61) 12/01/23 16:15 Alkaline Phosphatase 86 U/L (45-117) 12/01/23 16:15 Home Medications: Amlodipine [Norvasc*] 10 mg PO BID 06/14/14 Azelastine/Fluticasone [Azelastin-Flutic 137-50Mcg Spr] 23 gm NS BID 12/01/23 Cyclosporine [Restasis] 1 drop EACH EYE BID 12/01/23 Levothyroxine Sodium [Synthroid] 200 mcg PO DAILY 12/01/23 Losartan Potassium [Cozaar] 100 mg PO DAILY 12/01/23 hydroCHLOROthiazide [Hydrochlorothiazide*] 12.5 mg PO DAILY 12/01/23 Doxycycline Monohydrate 100 mg PO BID #20 tab 12/03/23 LIDOCAINE 5% Ointment [Lidocaine HCl*] 1 gm TP DAILY PRN #35.44 gm 12/03/23 Mupirocin Oint [Bactroban 2% Ointment*] 1 appl TOP TID #50 gm 12/03/23 Sodium Chlor/Hypochlorous Acid [Vashe Solution] 15 ml IR BID #475 ml 12/03/23 clindamycin HCL [Clindamycin HCl] 300 mg PO TID #30 cap 12/03/23 New Medications: Mupirocin Oint [Bactroban 2% Ointment*] 1 appl TOP TID #50 gm clindamycin HCL [Clindamycin HCl] 300 mg PO TID #30 cap Doxycycline Monohydrate 100 mg PO BID #20 tab LIDOCAINE 5% Ointment [Lidocaine HCl*] 1 gm TP DAILY PRN #35.44 gm PRN Reason: Pain Scale 5-7 (Moderate) Sodium Chlor/Hypochlorous Acid [Vashe Solution] 15 ml IR BID #475 ml Physician Discharge Instructions: Okay to DC IV and DC home, your kidney function fully recovered Follow-up with primary care provider in 1 to 2 weeks Follow-up with Dr Shea in 1 week Please call the inpatient unit for any questions or concerns regarding hospital stay Return to the ER for worsening symptoms New medications: Doxycycline 100mg by mouth twice daily for 10 days Clindamycin 300mg by mouth three times daily x 10 days Vashe wound cleanser Lidocaine jelly to use with dressing changes Pain medication Diet: Regular Activity: Ad elena Followup: Ramon Lugo DO [Primary Care Provider] - Dionicio Shea MD [ACTIVE - CAN ADMIT] -
[2023-12-03] MEDS: DOXYCYCLINE 100 MG CAP PO SCH (13:05)
[2023-12-03 13:35] VITALS: BP 118/67; TEMP 99
[2023-12-04] MEDS ORDERED: VANCOMYCIN 2 GM in NA CHLORIDE 0.9% 500 ML IV SCH
== END 2023-12-03 13:51 | disposition home or self-care (01) | DRG 571 ==
LOC: ER 15:24 → ERHOLD 18:28 → 4TH 19:16
PROVIDERS: ADMIT Hospitalist; ATTEND Hospitalist
PROC: 0JB70ZZ Excision of Back Subcutaneous Tissue and Fascia, Open Approach (ICD-10-PCS; principal; 2023-12-02 10:00)
DX: L03.312 Cellulitis of back [any part except buttock and flank] (principal); N17.9 Acute kidney failure, unspecified; L02.212 Cutaneous abscess of back [any part, except buttock and flank]; L72.3 Sebaceous cyst; E86.0 Dehydration; I10 Essential (primary) hypertension; E03.9 Hypothyroidism, unspecified; Z88.8 Allergy status to other drugs, medicaments and biological substances; Z79.899 Other long term (current) drug therapy; Z87.891 Personal history of nicotine dependence; Z79.890 Hormone replacement therapy
CPT/HCPCS: 36415; 71045; 74176; 80048; 80053; 80202; 83605; 85025; 85610; 85730; 87040; 87070; 87075; 87077; 87186; 87205; 88304; 93005; 96365; 96366; 99285; J0295; J1170; J2001; J2250; J2270; J2405; J2704; J3010; J7030; J7040; J7050; J7120